=== PATIENT | male | born 1990 | race Caucasian/White ===

== ENCOUNTER 2018-07-18 13:42 | Emergency (ER) | payer SELFPAY ==
[2018-07-18] MEDS: LIDOCAINE 1% (MDV) 20 ML INJ SC (15:58)
[2018-07-18] MEDS: DIPHTH/TET/ACEL PERTUSS (ADULT) 0.5 ML VIAL IM* (15:58)
[2018-07-18] MEDS: ACETAMINOPHEN 325 MG TAB PO (15:59)
== END 2018-07-18 16:24 | disposition home or self-care (01) ==
LOC: FTE 13:42
DX: S61.411A Laceration without foreign body of right hand, initial encounter (principal); W25.XXXA Contact with sharp glass, initial encounter; Y92.9 Unspecified place or not applicable; Z23 Encounter for immunization
CPT/HCPCS: 12002; 73130-RT; 90471; 90715; 99283-25